=== PATIENT | female | born 1980 | race Caucasian/White ===

== ENCOUNTER → 2023-04-08 09:14 | Outpatient (REF) | payer OTHER, SELFPAY | LOC: RAD 09:14 | PROVIDERS: ATTENDING PHYSICIAN Orthopaedic Surgery; FAMILY PHYSICIAN Family Medicine | DX: M25.552 Pain in left hip (principal); M62.89 Other specified disorders of muscle | CPT/HCPCS: 76882 ==

== ENCOUNTER → 2023-04-23 12:25 | Outpatient (REF) | payer OTHER, SELFPAY ==
[2023-04-23 12:50] VITALS: BP 117/74; BP_SYST 81
== END ==
LOC: RADI 12:25
PROVIDERS: ATTENDING PHYSICIAN Orthopaedic Surgery; FAMILY PHYSICIAN Family Medicine
DX: M25.552 Pain in left hip (principal); M62.89 Other specified disorders of muscle
CPT/HCPCS: 20551

== ENCOUNTER → 2023-05-19 07:32 | Outpatient (REF) | payer OTHER, SELFPAY | LOC: WDC 07:32 | PROVIDERS: ATTENDING PHYSICIAN Family Medicine | DX: Z12.31 Encounter for screening mammogram for malignant neoplasm of breast (principal) | CPT/HCPCS: 77063; 77067 ==

== ENCOUNTER → 2023-10-29 14:34 | Outpatient (REF) | payer OTHER, SELFPAY | LOC: RAD 14:34 | PROVIDERS: ATTENDING PHYSICIAN Surgery; FAMILY PHYSICIAN Nurse Practitioner Acute Care | DX: N20.0 Calculus of kidney (principal) | CPT/HCPCS: 74018 ==

== ENCOUNTER → 2024-04-25 08:07 | Outpatient (REF) | payer OTHER, SELFPAY | LOC: HWRAD 08:07 | PROVIDERS: ATTENDING PHYSICIAN Obstetrics & Gynecology Gynecology; FAMILY PHYSICIAN Family Medicine | DX: N93.9 Abnormal uterine and vaginal bleeding, unspecified (principal) | CPT/HCPCS: 76830; 76856 ==

== ENCOUNTER → 2024-08-15 11:43 | Outpatient (REF) | payer OTHER, SELFPAY | LOC: RAD 11:43 | PROVIDERS: ATTENDING PHYSICIAN Surgery; FAMILY PHYSICIAN Family Medicine | DX: N20.0 Calculus of kidney (principal) | CPT/HCPCS: 74018 ==

== ENCOUNTER → 2024-11-01 13:24 | Outpatient (REF) | payer OTHER, SELFPAY | LOC: RAD 13:24 | PROVIDERS: ATTENDING PHYSICIAN Internal Medicine Endocrinology, Diabetes & Metabolism; FAMILY PHYSICIAN Family Medicine | DX: E04.2 Nontoxic multinodular goiter (principal) | CPT/HCPCS: 76536 ==

== ENCOUNTER → 2024-11-24 13:23 | Outpatient (REF) | payer OTHER, SELFPAY | LOC: WDC 13:23 | PROVIDERS: ATTENDING PHYSICIAN Obstetrics & Gynecology Gynecology; FAMILY PHYSICIAN Family Medicine | DX: Z12.31 Encounter for screening mammogram for malignant neoplasm of breast (principal) | CPT/HCPCS: 77063; 77067 ==